=== PATIENT | female | born 1970 | race American Indian/Alaskan Native ===

== ENCOUNTER 2023-12-01 18:52 | Emergency (ER) | payer OTHER ==
[~2023-12-01] VITALS: Ht 157.5 cm; Wt 90.2 kg
[2023-12-01 20:33] LABS: BASOPHILS 0.4 % (0-2); EOSINOPHILS 1.5 % (0-6); HEMATOCRIT 33.2 % (35.0-50.0); HEMOGLOBIN 10.6 g/dL (12.0-18.0); LYMPHOCYTES 7.6 % (24-44); MCH 29.6 (27-36); MCHC 32.1 g/dl (30-36); MCV 92.2 fl (81-99); MONOCYTES 8.3 % (0-12); NEUTROPHILS 82.2 % (39-80); PLATELET COUNT 111 K/uL (140-440); RDW 16.8 (10.5-15.0)
[2023-12-01 20:38] LABS: BILIRUBIN, URINE NEGATIVE (negative); BLOOD/HGB, URINE TRACE-I (Negative); KETONE, URINE NEGATIVE (Negative); LEUK ESTERASE, URINE NEGATIVE (negative); NITRITE, URINE NEGATIVE (negative)
[2023-12-01 20:45] LABS: EPITHELIAL CELLS, URINE SQUAMOUS 1+ /lpf (0-1+)
[2023-12-01] MEDS ORDERED: FAMOTIDINE 20 MG/ 2 ML VIAL IV ONE (20:45)
[2023-12-01] MEDS ORDERED: IBUPROFEN 800 MG TAB PO ONE (20:45)
[2023-12-01] MEDS ORDERED: CEFTRIAXONE/SODIUM CHLORIDE 2 GM/100 ML PIGGYBACK IV ONE (20:45)
[2023-12-01 20:46] LABS: BACTERIA, URINE RARE /hpf (negative); CASTS, URINE NONE SEEN \\lpf; COLLECTION TYPE, URINE CLEAN CATCH; CRYSTALS, URINE NONE SEEN (0-1+); REFLEX CULTURE, URINE No (No)
[2023-12-01 20:53] LABS: LACTIC ACID, BLOOD 1.3 mmol/L (0.4-2.0)
[2023-12-01 20:54] LABS: AMPHETAMINES, URINE NEGATIVE (NEGATIVE); BARBITURATES, URINE NEGATIVE (NEGATIVE); BENZODIAZEPINE, URINE NEGATIVE (NEGATIVE); BUPRENORPHINE, URINE NEGATIVE (NEGATIVE); CANNABINOID, URINE POSITIVE (NEGATIVE); COCAINE, URINE NEGATIVE (NEGATIVE); ECSTASY, URINE NEGATIVE (NEGATIVE); FENTANYL, URINE NEGATIVE (NEGATIVE); METHADONE, URINE NEGATIVE (NEGATIVE); OPIATES, URINE NEGATIVE (NEGATIVE); OXYCODONE, URINE NEGATIVE (NEGATIVE); PHENCYCLIDINE, URINE NEGATIVE (NEGATIVE)
[2023-12-01 20:58] LABS: ALBUMIN 2.4 g/dL (3.4-5.0); ALBUMIN/GLOBULIN RATIO 0.43 (1.1-2.4); ANION GAP 16.1 (7-21); BILIRUBIN, TOTAL 0.7 ng/dL (0.2-1.0); BUN/CREATININE RATIO 21.3 (6.0-28.6); CALCIUM 7.8 mg/dL (8.5-10.1); CREATININE, SERUM 1.69 mg/dL (0.55-1.02); POTASSIUM 5.1 mmol/L (3.5-5.1)
[2023-12-01 20:59] LABS: MAGNESIUM 1.7 mg/dL (1.8-2.4)
[2023-12-01 21:40] LABS: INFLUENZA B NAA NEGATIVE (NEGATIVE); RESPIRATORY SYNCYTIAL VIR NAA NEGATIVE (NEGATIVE)
[2023-12-01] MEDS ORDERED: LACTATED RINGER'S 1,000 ML IV ONE (22:00)
[2023-12-01] MEDS ORDERED: ZITHROMAX250 MG PO (22:32)
[2023-12-01] MEDS ORDERED: AMOX TR-K CLV1 EAC1 PO (22:32)
[2023-12-01 22:45] VITALS: BP 136/66
[2023-12-01] MEDS ORDERED: AZITHROMYCIN 250 MG TAB PO ONE (22:45)
--- NOTE | 2023-12-02 21:32 | EKG ---
[facility] [address] [facility] [place] [address] Signed Normal sinus rhythm Normal ECG No previous ECGs available Confirmed by Akbar Herron MD () on 12/02/2023 9:32:41 PM Electronically Signed By: AKBAR HERRON MD 12/02/232131 PATIENT NAME: ANGELITO ROJAS Electrocardiogram DATE OF : 68 PHYSICIAN: AKBAR HERRON MD REPORT #: [id number] REPORT IS CONFIDENTIAL AND NOT TO BE RELEASED WITHOUT AUTHORIZATION
== END 2023-12-01 22:45 | disposition home or self-care (01) ==
LOC: ED 18:52
PROVIDERS: Internal Medicine
DX: J18.9 Pneumonia, unspecified organism (principal)
CPT/HCPCS: 36415; 71045; 73502; 80053; 80307; 81001; 83605; 83690; 83735; 83880; 84484; 85025; 87040; 87502; 93005; 93010; 96374; 96375; 99285-25; A9270; G0480; J0696; J7121; U0002